=== PATIENT | male | born 2000 | race Caucasian/White ===

== ENCOUNTER 2024-02-14 23:48 | Emergency (ER) | payer BC ==
[~2024-02-14] VITALS: Ht 152.4 cm; Wt 54.5 kg
[~2024-02-14 23:48] MED LIST: INTUNIV2 MG PO
[2024-02-15 00:01] VITALS: TEMP 98.4
[2024-02-15] MEDS ORDERED: Ibuprofen 400 MG TAB PO ONE (00:15)
[2024-02-15 01:12] VITALS: BP 132/66; PULSE 61
== END 2024-02-15 01:12 | disposition home or self-care (01) ==
LOC: COL.ER 23:48
DX: S92.512A Displaced fracture of proximal phalanx of left lesser toe(s), initial encounter for closed fracture (principal); W22.01XA Walked into wall, initial encounter; Y93.02 Activity, running; Y92.039 Unspecified place in apartment as the place of occurrence of the external cause